=== PATIENT | male | born 1970 | race American Indian/Alaskan Native ===

== ENCOUNTER 2019-12-04 09:32 | Outpatient (CLI) | payer OTHER ==
--- NOTE | 2019-12-04 11:01 | XRay Report ---
RIGHT SHOULDER 3 VIEW(S) INDICATION / CLINICAL INFORMATION: RIGHT SHOULDER PAIN COMPARISON: None available. FINDINGS: BONES / JOINT(S): No acute fracture or subluxation. No significant arthritis. SOFT TISSUES: No significant abnormality. ADDITIONAL FINDINGS: None. IMPRESSION: No acute osseous abnormality. Signer Name: Hector Vega MD Signed: 12/04/2019 10:56 AM Workstation Name: [id number]
--- NOTE | 2019-12-04 11:02 | XRay Report ---
LUMBOSACRAL SPINE 3 VIEWS INDICATION / CLINICAL INFORMATION: BACK PAIN. COMPARISON: None available. FINDINGS: VERTEBRAE: No acute fracture. No significant malalignment. DISC SPACES / FACET JOINTS:Mild multilevel degenerative spondylosis. There is moderate disc space hei ght loss at L5-S1 and to a lesser degree at L1-2. PARASPINAL SOFT TISSUES:No significant abnormality. ADDITIONAL FINDINGS: Numerous pelvic phleboliths are seen. IMPRESSION: No acute osseous abnormality. Signer Name: Hector Vega MD Signed: 12/04/2019 10:58 AM Workstation Name: [id number]
--- NOTE | 2019-12-04 11:02 | XRay Report ---
LEFT HIP AP AND LATERAL VIEWS INDICATION / CLINICAL INFORMATION: LEFT HIP PAIN. COMPARISON: None available. FINDINGS: BONES/JOINT(S): No acute fracture or subluxation. 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 No focal bone lesion. SOFT TISSUES: Multiple phleboliths in the pelvis. ADDITIONAL FINDINGS: None. Signer Name: Romeo Soliz MD Signed: 12/04/2019 10:57 AM Workstation Name: [id number]
== END 2019-12-04 09:33 | disposition home or self-care (01) ==
LOC: XRAY 09:32
PROVIDERS: ATTEND Internal Medicine
DX: M16.12 Unilateral primary osteoarthritis, left hip (principal); M47.817 Spondylosis without myelopathy or radiculopathy, lumbosacral region; M48.07 Spinal stenosis, lumbosacral region; M25.511 Pain in right shoulder
CPT/HCPCS: 72100